=== PATIENT | male | born 1990 | race African-American/Black ===

== ENCOUNTER → 2016-09-02 | Outpatient (REF) | payer OTHER ==
[2016-09-03 10:17] LABS: CONTROL LINE INT CTR LINE PRESENT; HIV SCRN NEGATIVE (NEGATIVE); HIV SCRN1 NEGATIVE (NEGATIVE)
== END ==
LOC: M SFHCPLAZ 15:07
PROVIDERS: ATTEND Family Medicine
DX: Z11.4 Encounter for screening for human immunodeficiency virus [HIV] (principal)

== ENCOUNTER → 2016-09-21 | Outpatient (CLI) | payer OTHER | LOC: M OUTALCOH 10:22 | PROVIDERS: ATTEND Psychiatry & Neurology Psychiatry | DX: Z03.89 Encounter for observation for other suspected diseases and conditions ruled out (principal) ==

== ENCOUNTER 2016-11-27 03:44 | Emergency (ER) | payer OTHER ==
[~2016-11-27] VITALS: Ht 180.3 cm; Wt 95.3 kg
[2016-11-27] MEDS ORDERED: DERMABOND TOPICAL SKIN ADHESIVE TOP ONE (06:00)
[2016-11-27 06:26] VITALS: BP 120/63
== END 2016-11-27 06:27 | disposition home or self-care (01) ==
LOC: M ED 05:13
DX: S01.81XA Laceration without foreign body of other part of head, initial encounter (principal); W10.8XXA Fall (on) (from) other stairs and steps, initial encounter; Y92.89 Other specified places as the place of occurrence of the external cause; Y93.01 Activity, walking, marching and hiking; Y99.8 Other external cause status; F17.200 Nicotine dependence, unspecified, uncomplicated

== ENCOUNTER 2018-05-17 07:41 | Emergency (ER) | payer MEDICAID, SELFPAY, OTHER ==
[2018-05-17] MEDS: ONDANSETRON 4MG/2ML VIAL (J2405) IV ×2 (08:25)
[2018-05-17] MEDS: NS 1,000 ML IV ×4 (08:25→09:30)
[2018-05-17 08:39] LABS: BASO % 0.2 % (0.0-1.0); EOS % 0.2 % (0.0-3.0); HEMOGLOBIN 16.6 g/dl (13.5-17.5); IMMATURE GRANULOCYTE % 0.6 % (0-3.0); LYMPH # 1.5 10^3/uL (1.5-6.5); LYMPH % 11.9 % (24.0-44.0); MEAN CORPUSCULAR HEMOGLOBIN 28.9 pg (27.0-33.0); MEAN CORPUSCULAR HGB CONC 33.9 g/dl (32.0-36.5); MEAN CORPUSCULAR VOLUME 85.2 fl (80.0-96.0); MONO # 0.9 10^3/uL (0.0-0.8); MONO % 7.2 % (0.0-5.0); NEUTROPHILS # 9.9 10^3/uL (1.8-7.7); NEUTROPHILS % 79.9 % (36.0-66.0); PLATELET COUNT, AUTOMATED 252 10^3/uL (150-450); RED BLOOD COUNT 5.75 10^6/uL (4.30-6.10); RED CELL DISTRIBUTION WIDTH 13.5 % (11.5-14.5); WHITE BLOOD COUNT 12.3 10^3/uL (4.0-10.0)
[2018-05-17 09:16] LABS: ALBUMIN 4.9 GM/DL (3.2-5.2); ALBUMIN/GLOBULIN RATIO 1.23 (1.00-1.93); ALKALINE PHOSPHATASE 63 U/L (45-117); ALT/SGPT 32 U/L (12-78); ANION GAP 9 MEQ/L (8-16); AST/SGOT 10 U/L (7-37); BILIRUBIN,DIRECT 0.2 MG/DL (0.0-0.2); BILIRUBIN,TOTAL 0.7 MG/DL (0.2-1.0); BLOOD UREA NITROGEN 23 MG/DL (7-18); CALCIUM LEVEL 10.1 MG/DL (8.5-10.1); CARBON DIOXIDE LEVEL 26 MEQ/L (21-32); CHLORIDE LEVEL 101 MEQ/L (98-107); CREATININE FOR GFR 1.34 MG/DL (0.70-1.30); GLOMERULAR FILTRATION RATE > 60.0 (>60); GLUCOSE, FASTING 103 MG/DL (70-100); POTASSIUM SERUM 3.9 MEQ/L (3.5-5.1); SODIUM LEVEL 136 MEQ/L (136-145); TOTAL PROTEIN 8.9 GM/DL (6.4-8.2)
[2018-05-17 11:05] LABS: AMORPHOUS SEDIMENT SMALL (NEGATIVE); APPEARANCE, URINE HAZY (CLEAR); BACTERIA, URINE AUTO NEGATIVE (NEGATIVE); BILIRUBIN, URINE AUTO NEGATIVE (NEGATIVE); BLOOD, URINE BLOOD NEGATIVE (NEGATIVE); COLOR, URINE YELLOW (YELLOW); GLUCOSE, URINE (UA) AUTO NEGATIVE (NEGATIVE); KETONE, URINE AUTO TRACE mg/dL (NEGATIVE); LEUKOCYTE ESTERASE, URINE AUTO NEGATIVE (NEGATIVE); MUCUS, URINE LARGE (NEGATIVE); NITRITE, URINE AUTO NEGATIVE (NEGATIVE); PROTEIN, URINE AUTO 2+ mg/dL (NEGATIVE); RBC, URINE AUTO 5 /HPF (0-3); SPECIFIC GRAVITY URINE AUTO 1.033 (1.002-1.035); SQUAMOUS EPITHELIAL CELL UR AU 0 /HPF (0-6); UROBILINOGEN, URINE AUTO 0.2 mg/dL (0.0-2.0); WBC, URINE AUTO 3 /HPF (0-3)
== END 2018-05-17 10:35 | disposition home or self-care (01) ==
LOC: M ED 07:41
DX: E86.0 Dehydration (principal); F12.188 Cannabis abuse with other cannabis-induced disorder
CPT/HCPCS: J2405

== ENCOUNTER 2019-07-19 07:23 | Inpatient (IN) | payer MEDICAID, OTHER ==
[~2019-07-19] VITALS: Ht 177.8 cm; Wt 73.3 kg
[~2019-07-19 07:23] MED LIST: ZOFR4TAB14 PO
[2019-07-19] MEDS ORDERED: MORPHINE 4 MG/ML 1ML VIAL/SYRINGE (J2270) As Ordered ONE (07:45)
[2019-07-19] MEDS ORDERED: ONDANSETRON 4MG/2ML VIAL (J2405) As Ordered ONE (07:45)
[2019-07-19] MEDS: MORPHINE 4 MG/ML 1ML VIAL/SYRINGE (J2270) IV PRN ×2 (07:53→08:21)
--- NOTE | 2019-07-19 07:59 | REP ---
Chest x-ray: Two views. History: History of pneumothorax. Shortness of breath. No comparison study. Findings: There is a large right-sided pneumothorax with depression of the right hemidiaphragm, shift of the mediastinum to the left, and some widening of the intercostal spaces consistent with some degree of tension. The left lung is clear. Impression: Findings consistent with tension pneumothorax right side. Findings were telephoned to the referring provider at the time of the study. Electronically Signed by Judah Mora MD 07/19/2019 07:50 A
[2019-07-19] MEDS ORDERED: ONDANSETRON 4MG/2ML VIAL (J2405) IV ONE (08:00)
[2019-07-19] MEDS ORDERED: KETOROLAC 30 MG/ML VIAL (J1885) As Ordered ONE (08:03)
[2019-07-19] MEDS: NS 1,000 ML IV SCH ×4 (08:04→23:00)
[2019-07-19] MEDS ORDERED: KETOROLAC 30 MG/ML VIAL (J1885) IV ONE (08:15)
[2019-07-19] MEDS ORDERED: LIDOCAINE 2% W/EPIN INJ 20ML **PRES FREE INJ ONE (08:15)
[2019-07-19 08:23] LABS: BASO # 0.1 10^3/uL (0.0-0.2); BASO % 0.2 % (0.0-1.0); LYMPH # 1.4 10^3/uL (1.5-5.0); LYMPH % 6.5 % (24.0-44.0); MEAN CORPUSCULAR HEMOGLOBIN 28.5 pg (27.0-33.0); MEAN CORPUSCULAR HGB CONC 33.3 g/dl (32.0-36.5); MEAN CORPUSCULAR VOLUME 85.4 fl (80.0-96.0); MONO # 1.1 10^3/uL (0.0-0.8); MONO % 5.1 % (0.0-5.0); NEUTROPHILS # 18.3 10^3/uL (1.5-8.5); NEUTROPHILS % 87.1 % (36.0-66.0); PLATELET COUNT, AUTOMATED 310 10^3/uL (150-450); RED BLOOD COUNT 6.57 10^6/uL (4.30-6.10)
[2019-07-19 08:27] LABS: HEMATOCRIT 56.1 % (42.0-52.0); HEMOGLOBIN 18.7 g/dl (13.5-17.5)
[2019-07-19] MEDS ORDERED: NS IV ONE (09:00)
[2019-07-19] MEDS ORDERED: KETAMINE HCL IV ONE (09:00)
[2019-07-19 09:02] LABS: ALBUMIN 6.3 GM/DL (3.2-5.2); BILIRUBIN,TOTAL 0.8 MG/DL (0.2-1.0); CALCIUM LEVEL 11.2 MG/DL (8.5-10.1); CREATININE FOR GFR 6.43 MG/DL (0.70-1.30); GLOMERULAR FILTRATION RATE 13.4 (>60); POTASSIUM SERUM 4.4 MEQ/L (3.5-5.1); TOTAL PROTEIN 11.4 GM/DL (6.4-8.2)
[2019-07-19] MEDS ORDERED: MIDAZOLAM INJ 2 MG/2 ML VIAL (J2250) As Ordered ONE (09:10)
[2019-07-19] MEDS ORDERED: MIDAZOLAM INJ 2 MG/2 ML VIAL (J2250) IV STA (09:11)
--- NOTE | 2019-07-19 09:26 | REP ---
Portable chest x-ray: Single view. History: Tension pneumothorax status post chest tube. Findings: A right chest tube has been inserted with its tip near the apex in good position. The right-sided pneumothorax has been evacuated and the right lung reinflated with except for a small zone of linear plate-like atelectasis is present in the right base. Right hemidiaphragm is slightly elevated. Left lung remains clear. Impression: Right chest tube in good position. The right-sided pneumothorax has been evacuated. Electronically Signed by Judah Mora MD 07/19/2019 09:17 A
[2019-07-19] MEDS ORDERED: NS 1,000 ML IV ONE ×2 (09:45)
[2019-07-19 10:06] LABS: MAGNESIUM LEVEL 2.9 MG/DL (1.8-2.4)
[2019-07-19 10:36] LABS: URIC ACID 7.5 MG/DL (3.5-7.2)
[2019-07-19 10:56] LABS: IONIZED CALCIUM 4.6 MG/DL (4.5-5.3)
--- NOTE | 2019-07-19 10:57 | REP ---
RENAL ULTRASOUND: Real-time sonographic evaluation of the kidneys performed. The kidneys are normal in size and echotexture, right kidney measuring 10.2 x 5.5 x 4.1 cm and left kidney 10.5 x 5.2 x 5.6 cm. There is no hydronephrosis bilaterally. Study is somewhat limited due to patient body habitus. The bladder is not well-distended and ureteral jets are not well visualized with Doppler color evaluation. IMPRESSION: No hydronephrosis. Electronically Signed by Popeye Mack MD 07/23/2019 10:14 A
[2019-07-19 11:04] LABS: BASO % 0.2 % (0.0-1.0); HEMATOCRIT 51.2 % (42.0-52.0); HEMOGLOBIN 17.2 g/dl (13.5-17.5); LYMPH # 0.8 10^3/uL (1.5-5.0); LYMPH % 3.5 % (24.0-44.0); MEAN CORPUSCULAR HGB CONC 33.6 g/dl (32.0-36.5); MEAN CORPUSCULAR VOLUME 86.2 fl (80.0-96.0); MONO # 1.8 10^3/uL (0.0-0.8); MONO % 8.1 % (0.0-5.0); NEUTROPHILS # 18.7 10^3/uL (1.5-8.5); NEUTROPHILS % 86.8 % (36.0-66.0); PLATELET COUNT, AUTOMATED 267 10^3/uL (150-450); RED BLOOD COUNT 5.94 10^6/uL (4.30-6.10); WHITE BLOOD COUNT 21.6 10^3/uL (4.0-10.0)
[2019-07-19] MEDS ORDERED: ACETAMINOPHEN TAB 650MG DOSE (2X325MG) PO PRN (11:15)
[2019-07-19] MEDS ORDERED: NALOXONE INJ 0.4 MG/1 ML VIAL (J2310) IV PRN (11:15)
[2019-07-19] MEDS ORDERED: MORPHINE 4 MG/ML 1ML VIAL/SYRINGE (J2270) IV PRN (11:15)
[2019-07-19 11:28] LABS: C REACTIVE PROTEIN QUANTITATIV 0.49 MG/DL (0.00-0.30); CALCIUM LEVEL 9.8 MG/DL (8.5-10.1); CREATININE FOR GFR 5.99 MG/DL (0.70-1.30); GLOMERULAR FILTRATION RATE 14.5 (>60); MAGNESIUM LEVEL 2.5 MG/DL (1.8-2.4); PHOSPHORUS LEVEL 8.8 MG/DL (2.5-4.9); POTASSIUM SERUM 4.6 MEQ/L (3.5-5.1)
[2019-07-19 11:32] LABS: TOTAL PROTEIN 9.4 GM/DL (6.4-8.2)
[2019-07-19] MEDS: PERCOCET 5MG/325MG TAB PO PRN ×2 (11:35→21:49)
[2019-07-19] MEDS ORDERED: SODIUM BICARBONATE 150 MEQ in STERILE WATER LITER BAG 1,000 ML IV SCH (12:00)
--- NOTE | 2019-07-19 12:03 | HPE ---
DATE OF ADMISSION: 07/19/2019 PRIMARY CARE PHYSICIAN: None, previously seen by Dr. Debora Roberts in 2017. CHIEF COMPLAINT: Shortness of breath, chest pain. HISTORY OF PRESENTING ILLNESS: 29-year-old male with history of cyclic hyperemesis syndrome secondary to daily marijuana use who presents to the emergency room with acute onset of pleuritic chest pain on the right side and shortness of breath. For the past three days he felt that he had food poisoning, could not eat but was able to keep liquids down and was drinking up to 24 packs of water at home. He says that when he gets food poisoning he feels better when he goes in a shower. This morning has was in the shower relaxing his body and was in there for about 10 minutes when he noticed a loud pop and sharp pain on the right chest, which was similar to the pain he had last year on the left side when he had a left sided pneumothorax. He was seen in the emergency room but refused a chest tube at that time. He relates that during that time he had been having a two months history of trouble breathing, unable to lay down straight, could not breath, woke up his girlfriend when his heart was fluttering and could not catch his breath. He then went to [place] and was told that he needed a chest tube, that he did not give permission to do. They then wanted to transfer him to [facility], but he refused and ended up getting into his car and driving to [facility] emergency room where he had a chest tube placed emergently. The patient is concerned that this is a similar episode this time, that he has had prior exposure to, and was concerned that his inhalation of chemicals for working at [employer] for 1-1/2 years may have caused these issues. For the past three days he has been nauseated and vomiting, but mostly at nighttime, 3-5 times a night, and was retching violently yesterday with bad muscle spasms. He denied any diarrhea. No sick contacts. No fever. He was developing some hot sweats, however. No pain medications taken for nausea, vomiting or the right sided pleuritic chest pain. When he presented to the emergency room, he was found to have a right sided tension pneumothorax. A chest tube was placed by the emergency room physician, Dr. Rodriguez, and a surgical consult, Dr. Garcia, was done for management of chest tube. The patient's blood pressure in the ER was 224/140 due to significant respiratory distress and pleuritic chest pain. He ws afebrile but had a white count of 21,000, appeared to be hemoconcentrated, with a new finding of a creatinine of 6.43 with baseline of 1.3. Hospitalist was called to admit for tension pneumothorax being managed by general surgery and evaluation of the patient's renal failure, most likely secondary to severe dehydration from recurrent vomiting, most likely related to cyclic hyperemesis secondary to marijuana. PAST MEDICAL HISTORY: Left sided pneumothorax. Cyclic hyperemesis syndrome secondary to marijuana use. PAST SURGICAL HISTORY: Chest tube placement on the left at [facility]. ALLERGIES: No known drug allergies. MEDICATIONS: None. SOCIAL HISTORY: The patient has been using marijuana several times during the day, everyday, "I use it a lot" for several years. No history of tobacco use. Previously worked for [employer] in 2017 for 1-1/2 years, currently going to school. He currently lives at home with his girlfriend and some kids. Healthcare proxy is his girlfriend. FAMILY HISTORY: Mother and father unknown medical history. The patient says "they are drug users." REVIEW OF SYSTEMS: As per HPI. 12 point system otherwise negative. PHYSICAL EXAMINATION: Temperature 96.2, pulse 109, blood pressure 203/103, 99% on room air. General: Patient is awake, alert and oriented to person, place and time. He currently is able to speak in full sentences, and has a right sided chest tube placed. Lungs: Are diminished but clear to auscultation. No wheezing, rales or rhonchi. Heart: S1, S2 sinus tachycardia. Abdomen: Soft, nontender, nondistended. Positive bowel sounds times four quadrants. No rebound or guarding. No hepatosplenomegaly. Extremities: No cyanosis, clubbing or pitting edema. Skin: The patient has a chest tattoo, bilateral upper extremities as well. LABORATORY DATA: White count 21,000, hemoglobin 18, hematocrit 56, platelet count 310, 87% neutrophils. Sodium 129, potassium 4.4, chloride 92, bicarb 20, BUN 47, creatinine 6.43, glucose 178, calcium of 11.2, uric acid 7.5, magnesium 2.9, total bilirubin 0.88, AST 21, ALT 28, alkaline phosphatase 78, total CK 581, total protein 11.4, albumin of 6.3. Albumin globulin ratio 1.24. Procalcitonin pending. JAYLA screen is pending. Hepatitis serology is pending. Urinalysis is pending. Renal ultrasound 07/19/2019 no hydronephrosis. Bladder is not well distended. Ureteral jets are not well visualized with Doppler color evaluation. Chest x-ray 07/19/2019 tension pneumothorax on the right with depression of the right hemidiaphragm, shift of mediastinum to the left with widening of the intercostal space consistent with some degree of tension. Left lung is clear. ASSESSMENT/PLAN: This is a 29-year-old male, -Gambian, with history of left sided pneumothorax requiring chest tube placement managed at [facility] last year, who presents with acute onset of a popping sensation of the right lung with acute shortness of breath today while in the shower with three day history of nausea and vomiting at home, found to have acute renal failure, metabolic acidosis, hyponatremia. The patient will be admitted as an inpatient for two midnights for the following issues: Right sided tension pneumothorax status post chest tube placement in the emergency room by Dr. Rodriguez. Patient denies any prior history of Tobacco abuse. Will chest CT chest to look for emphysematous blebs rule out alpha-1 antitrypsin deficiency if possible blebs are noted. Surgical management per Dr. Nader Garcia, who has been consulted. Keep saturations greater than 90% with supplemental oxygen if needed. The patient is admitted to the telemetry unit. Acute kidney injury. The patient has had a three day history of nausea and vomiting without any diarrhea. Will replenish with IV fluids times 3 liters. Currently renal ultrasound shows no hydronephrosis. Check A1c level. Rule out diabetes. Check urine protein, SPEP, UPEP. Continue with fluid hydration. If no significant improvement, consult nephrology. R/o vasculitis, glomerular disease. check JAYLA,panca, antigbm ab, crp, esr, c3 c4 cryoglobulins, hepatitis serology, hiv, urine eosinophils. consult nephrology. Hypertensive urgency secondary to severe pain and respiratory distress. Improving without intervention. Hyponatremia. The patient states that he was drinking up to 29 bottles of water a day to try to keep up with the nausea and vomiting, however. Will check serum osmolarity and uric acid. Monitor hemoglobin and hematocrit every 6 hours and adjust fluids accordingly. Metabolic acidosis secondary to renal failure. monitor with serial metabolic panel. Leukocytosis. Most likely reactive. Chest x-ray shows no acute infiltrate. Await results of CT chest. He denies any fever, chills, but was having some hot sweats at home. Chest urinalysis. No empiric antibiotics for now unless the patient is febrile. Cyclic vomiting syndrome due to cannabis use which he uses recreationally. cessation counselling has been provided secondary polycythemia may benefit from pulmonary referral as outpt especially in light of bullous changes seen on CT chest. check 2D echo to rule out pulmonary hypertension. Abnormal CT chest/Emphysema will need pulmonary referral, PFTs. due to bullae in lungs. Recreational drug use advised to stop cannabis use which in rare cases can cause bullae in lungs. Proteinuria r/o nephrotic syndrome, DM, vasculitis. monitor urine output. nephrology consulted Hypercalcemia. Awaits UPEP and SPEP. Continue with IV fluid hydration. Compression stockings for deep vein thrombosis (DVT) prophylaxis. Diet. Renal diet. MTDD
[2019-07-19 12:23] VITALS: BP 158/85
--- NOTE | 2019-07-19 12:32 | REP ---
CT chest without contrast: History: Chest tube. Pneumothorax. Comparison is made with today's chest x-ray. Findings: There are small biapical bullae noted superiorly and medially. On the right this includes a bolus which measures 2.4 cm in greatest diameter. A little lower down along the medial aspect of the right upper lobe adjacent to the mediastinum there is a 1.3 cm bolus. On the left there are two or three subcentimeter bullae in the apex. There is no visible pneumothorax in the apex. A tiny sliver of pleural air is seen anteriorly and medially. There is a mild amount of pneumomediastinum. The lung callahan show no evidence of infiltrate. There is no evidence of pleural effusion. Right chest tube remains in position coursing along the lateral right chest in the major fissure to the apex. No bony abnormality. Impression: Right chest tube in place. Right pneumothorax is virtually completely evacuated. There is a small amount of pneumomediastinum. There are bilateral upper lobe pulmonary parenchymal bullae or air cysts. Right larger than left. Electronically Signed by Judah Mora MD 07/19/2019 01:10 P
[2019-07-19 12:41] LABS: HEMOGLOBIN A1c 5.2 %
[2019-07-19] MEDS ORDERED: SODIUM BICARBONATE 325 MG TAB PO SCH (13:00)
[2019-07-19 15:55] VITALS: BP 137/84
[2019-07-19 17:01] LABS: POTASSIUM RANDOM URINE 62.9 MEQ/L; TOTAL PROTEIN,RANDOM URINE 194.5 MG/DL (0.0-12.0); URINE TOTAL PROTEIN 194.5 MG/DL (0-12)
[2019-07-19 19:51] LABS: CALCIUM LEVEL 8.5 MG/DL (8.5-10.1); CREATININE FOR GFR 3.28 MG/DL (0.70-1.30); GLOMERULAR FILTRATION RATE 29.1 (>60); POTASSIUM SERUM 3.9 MEQ/L (3.5-5.1)
[2019-07-19 20:00] VITALS: BP 145/84
[2019-07-19] MEDS: ONDANSETRON 4MG/2ML VIAL (J2405) IV PRN (21:16)
--- NOTE | 2019-07-19 23:03 | REPVR ---
PROCEDURE INFORMATION: Exam: XR Chest, 2 Views Exam date and time: 07/19/2019 10:17 PM Age: 29 years old Clinical history: Other: Right side chest pain. Same side as chest tube; Additional info: Right side chest pain. Same side as chest tube TECHNIQUE: Imaging protocol: XR of the chest Views: 2 views. COMPARISON: CR PORTABLE CHEST X-RAY 07/19/2019 9:06 AM FINDINGS: Tubes, catheters and devices: Right-sided chest tube with its tip in the apical region. Lungs: Emphysematous changes in the right chest wall. Pleural space: Unremarkable. No pleural effusion. No pneumothorax. Heart/Mediastinum: Unremarkable. No cardiomegaly. Bones/joints: Unremarkable. IMPRESSION: Right-sided chest tube with its tip in the apical region. No acute abnormality. Electronically signed by: Michael Lamb On 07/19/2019 23:02:48 PM
[2019-07-20] VITALS (14 sets, daily range): BP systolic 135–184; BP diastolic 74–98
[2019-07-20] MEDS: NS 1,000 ML IV SCH ×6 (04:00→20:00)
[2019-07-20 06:29] LABS: ALBUMIN 3.4 GM/DL (3.2-5.2); ALT/SGPT 17 U/L (12-78); BILIRUBIN,TOTAL 1.1 MG/DL (0.2-1.0); BLOOD UREA NITROGEN 26 MG/DL (7-18); CALCIUM LEVEL 8.4 MG/DL (8.5-10.1); CARBON DIOXIDE LEVEL 28 MEQ/L (21-32); CHLORIDE LEVEL 104 MEQ/L (98-107); CREATININE FOR GFR 1.55 MG/DL (0.70-1.30); GLOMERULAR FILTRATION RATE > 60.0 (>60); GLUCOSE, FASTING 102 MG/DL (70-100); POTASSIUM SERUM 4.1 MEQ/L (3.5-5.1); SODIUM LEVEL 137 MEQ/L (136-145); TOTAL PROTEIN 6.6 GM/DL (6.4-8.2)
--- NOTE | 2019-07-20 08:37 | REP ---
Portable chest x-ray: Single view. History: Pneumothorax chest tube treatment. Comparison study July 19, 2019 a 10:07 p.m. Findings: The right chest tube is seen in place in the right apex. The right-sided pneumothorax has recurred and a small amount of air is seen throughout the right pleural space, approximately 15% right pneumothorax. There is some extrathoracic gas. The left lung is clear. No infiltrate is seen. Impression: The right-sided pneumothorax has recurred, approximately 15% despite the right chest tube. Electronically Signed by Judah Mora MD 07/20/2019 08:29 A
[2019-07-20 10:19] LABS: CRYOGLOBULINS NEGATIVE (NEGATIVE)
--- NOTE | 2019-07-20 10:39 | REP ---
PORTABLE CHEST X-RAY: SINGLE VIEW AT 10:09 A.M. HISTORY: Pneumothorax with chest tube. COMPARISON STUDY: 07/20/2019 at 7:17 a.m. FINDINGS: The recurrent right-sided pneumothorax has been largely evacuated. There is a tiny sliver of residual right apical pleural air. The lung callahan remain otherwise clear. There is some mild extrathoracic soft tissue emphysema along the right lateral chest wall again noted. IMPRESSION: Improved, nearly resolved right-sided pneumothorax on the current film. Right chest tube remains in place. Electronically Signed by Judah Mora MD 07/20/2019 01:02 P
[2019-07-20 10:51] LABS: HEPATITIS A ANTIBODY IGM NEGATIVE (NEGATIVE); HEPATITIS B CORE ANTIBODY IGM NEGATIVE (NEGATIVE); HEPATITIS B SURFACE ANTIGEN NEGATIVE (NEGATIVE); HEPATITIS C VIRUS ABY INDEX 0.1 INDEX (<0.8)
[2019-07-20 10:51] LABS: HIV 1&2 SCREEN CENTAUR NEGATIVE (NEGATIVE)
[2019-07-20] MEDS: ONDANSETRON 4MG/2ML VIAL (J2405) IV PRN (14:14)
[2019-07-20] MEDS ORDERED: PERCOCET 5MG/325MG TAB PO ONE (17:30)
[2019-07-20] MEDS ORDERED: amLODIPine 5 MG TAB PO ONE (17:30)
[2019-07-20] MEDS ORDERED: LIDOCAINE 1% MDV 20ML VIAL As Ordered ONE (18:54)
--- NOTE | 2019-07-20 19:13 | REP ---
Portable chest x-ray: Single view. History: Chest tube dislodged. Pneumothorax. Comparison study July 20, 2019. Findings: The chest tube in place on the earlier radiograph is no longer apparent. The right sided pneumothorax has recurred and is large. There is no mediastinal shift but there is nearly complete collapse of the right lung. There is extrathoracic soft tissue gas again seen. Impression: Recurrence of the large right sided pneumothorax post chest tube dislodgement. Electronically Signed by Judah Mora MD 07/20/2019 07:05 P
--- NOTE | 2019-07-20 20:08 | REP ---
Portable chest x-ray: Single view. History: Pneumothorax, status post chest tube placement. Findings: A right thoracostomy catheter is seen in place overlying the upper chest. The right-sided pneumothorax is improved with a small residual pneumothorax. The right lung is largely reinflated. Impression: Right-sided pneumothorax is improved post pleural drainage tube placement. Electronically Signed by Judah Mora MD 07/20/2019 07:59 P
--- NOTE | 2019-07-20 21:14 | IPN ---
DATE: 07/20/2019 HISTORY: The patient was admitted yesterday through the emergency department. He presented with a tension pneumothorax on the right with complete collapse of the lung. This was a spontaneous pneumothorax. He had a chest tube placed by Dr. Rodriguez in the emergency department and was admitted by medicine because of concomitant diagnosis of acute renal failure. He has been hydrated vigorously and his renal function is markedly improved. His chest tube is being managed by me. Vital signs: Show that he has been afebrile since admission. His pulse is in the 50s to 70s. His blood pressure is good and his room air saturations are normal. Intake and output shows that yesterday he had 5600 in with 1300 of urine output and 10 mL in the chest tube. PHYSICAL EXAMINATION: The patient is alert and oriented. He is resting in bed kneeling on the bed, leaning forward across a mound of pillows and blankets and he indicates this is his most comfortable position. Examination of the chest tube dressing shows this to be intact. The chest tube itself indicates that he is having an intermittent air leak with bubbles not with every breath but every several breaths. He does have some increased air leak momentarily with a cough. Laboratory studies today show a chemistry profile with a sodium of 137, potassium 4.1, chloride 104, CO2 of 28, BUN of 26, creatinine is down to 1.55 from 6.4 at time of admission. His glucose is 102 and liver function tests are not significantly abnormal. CHEST X-RAY: He had a chest x-ray last evening for apparently a complaint of some right-sided chest pain, which would be expected. He had a chest x-ray that I had ordered this morning as a portable and this showed a small apical pneumothorax extending about assisted down the chest. The chest tube itself appears to perhaps be slightly pulled back from the initial insertion x-ray, but otherwise is in good position. IMPRESSION: The patient appears to be tolerating his chest tube about as expected. There has been no significant fluid output. He does have some bubbling in his chest tube and on his regional chest x-ray today showed a recurrent small pneumothorax of the superior aspect of the chest. The patient's Pleur-Evac appears to be functioning well currently. It is unclear to me if his current position will help drainage of air or perhaps hinder it, but I do not think it is necessary to require him to reposition himself. We will monitor his chest tube and his air leak. I would note that he had a CT scan yesterday that did show small blebs at the apices of both lungs. At the time of his chest CT, the lung was completely expanded with the chest tube in good position. PLAN: We will monitor his chest tube air leak. I suspect that the patient's risk for recurrence is pretty high given his previous pneumothorax on the left and now his new pneumothorax on the right. I think he may well be a good candidate for a blebectomy and pleurodesis. I did advise him that I think it is likely that this would be of benefit to him. For now, we will continue to monitor his leak and I will let him think about the possibility of surgery.
--- NOTE | 2019-07-20 22:25 | RO ---
DATE OF PROCEDURE: 07/20/2019 PREOPERATIVE DIAGNOSIS: Pneumothorax (previous chest tube fell out). POSTOPERATIVE DIAGNOSIS: Pneumothorax (previous chest tube feel out). PROCEDURE: Anterior chest tube placement. SURGEON: Reese Lopez MD REFRIGERATION SPECIALIST: ANESTHESIA: Local lidocaine. BRIEF PROCEDURE SUMMARY: The patient was prepped and draped in the usual sterile fashion in his bed. Local lidocaine was infiltrated and an anterior approach to placing a percutaneous drainage catheter. The local was injected, the percutaneous catheter was placed without difficulty. Good air return was obtained, and this was placed on suction catheter. The catheter was sutured in place and a dry sterile dressing applied. Postoperative chest x-ray confirmed that the lung was starting to insufflate and was not completely there at the time of the postprocedure chest x-ray. Plan is for a followup chest x-ray in the morning for reevaluation of the air leak/chest tube.
[2019-07-21] VITALS (9 sets, daily range): BP systolic 68–172; BP diastolic 66–100
[2019-07-21] MEDS: NS 1,000 ML IV SCH ×3 (00:11→08:11)
--- NOTE | 2019-07-21 02:30 | REPVR ---
PROCEDURE INFORMATION: Exam: XR Chest, 1 View Exam date and time: 07/21/2019 2:15 AM Age: 29 years old Clinical history: Other: New air leak TECHNIQUE: Imaging protocol: XR of the chest Views: 1 view. COMPARISON: CR PORTABLE CHEST X-RAY 07/20/2019 7:42 PM FINDINGS: Lungs: Unremarkable. No consolidation. Pleural space: Mild right pneumothorax which is slightly decreased overall since the prior study. Heart/Mediastinum: Unremarkable. No cardiomegaly. Bones/joints: Right thoracic vent in position. Soft tissues: Subcutaneous emphysema about the right chest which is similar. IMPRESSION: 1. Mild right pneumothorax which is slightly decreased since 07/20/2019. 2. Otherwise stable chest. Electronically signed by: Chay Vallejo On 07/21/2019 02:30:13 AM
[2019-07-21 06:28] LABS: BLOOD UREA NITROGEN 8 MG/DL (7-18); CALCIUM LEVEL 8.3 MG/DL (8.5-10.1); CARBON DIOXIDE LEVEL 27 MEQ/L (21-32); CHLORIDE LEVEL 106 MEQ/L (98-107); CREATININE FOR GFR 0.92 MG/DL (0.70-1.30); GLOMERULAR FILTRATION RATE > 60.0 (>60); GLUCOSE, FASTING 88 MG/DL (70-100); POTASSIUM SERUM 3.9 MEQ/L (3.5-5.1); SODIUM LEVEL 142 MEQ/L (136-145)
--- NOTE | 2019-07-21 07:57 | REP ---
RENAL NUCLEAR SCAN WITH FLOW AND FUNCTION: Following the intravenous administration of 8.4 mCi of technetium 99m MAG3, immediate flow images are obtained of the kidneys in the posterior projection showing greater degree of perfusion of right kidney compared to the left. Delayed renal function images are performed every minute for a period of 30 minutes in the posterior projection. The kidneys are symmetrical in size with cortical uptake and washout. There is bilateral excretion. There is initially mild prominence of the right ureter, but this resolves towards the end of the exam. There is no persistent hydroureteronephrosis or evidence of urinary tract obstruction bilaterally. Split function is 41.9% on the left and 58.1% on the right. Time to peak is normal bilaterally under 1 minute. T-1/2 is normal bilaterally, approximately 4.7 minutes on the left and 4.8 minutes on the right. Renal function curves are normal in their downward slopes. There is moderate activity in the urinary bladder which persists after voiding. IMPRESSION: Relatively normal renal function bilaterally. Greater degree of split function on the right compared to the left. Moderate postvoid residual in the urinary bladder after voiding. Electronically Signed by Popeye Mack MD 07/23/2019 04:17 P
--- NOTE | 2019-07-21 08:45 | REP ---
Chest x-ray: Two views. 07:47 a.m. film. History: Pneumothorax. Chest tube. Comparison study: 07/21/2019 02:07 a.m. film. Findings: The right pleural drainage catheter is again noted in the right apex. There has been a further decrease in the size of the right-sided pneumothorax since the 02:07 a.m. film. There is a tiny sliver of residual pleural air at the apex 3-4 mm in thickness. No infiltrate is seen. Left lung is clear. EKG electrodes are seen. Impression: Improved now tiny right-sided pneumothorax with pleural drainage catheter at the upper lung zone on the right. Electronically Signed by Juadh Mora MD 07/21/2019 08:36 A
--- NOTE | 2019-07-21 09:21 | IPN ---
DATE OF SERVICE: 07/20/2019 The patient complains of increasing shortness of breath. Repeat chest x-ray shows slight recurrence of the pneumothorax at 15%. Repeat chest x-ray shows improvement, nearly resolved right-sided pneumothorax, right chest tube in place. The patient's creatinine is significantly improved from 6.43 to 1.55. Urine culture is negative. Group B Streptococcus screen is negative. Respiratory panel negative. Repeat chest x-ray shows no infiltrate. Procalcitonin is 0.1. No empiric antibiotics have been given. The patient denies any shortness of breath. He still complains of pleuritic chest pain and pain rated at 4/10 when he moves around with the chest tube. Temperature 98.5, pulse 51, respiratory rate 19, blood pressure 158/98, 99% on room air. Generally, the patient is awake, alert, oriented times three. No respiratory distress. No use of respiratory accessory muscles. No abdominal retractions. No nasal flaring. No conversational dyspnea. No jugular venous distention (JVD). No thyromegaly. Moist mucous membranes. Lungs are clear to auscultation bilaterally. Right-sided chest tube noted. Heart: S1, S2, sinus tachycardia. Abdomen: Soft, nontender, nondistended. Extremities: No cyanosis, clubbing, or any pitting edema. LABORATORY DATA: Reviewed. Notable for a creatinine of 1.55, admission creatinine of 6.43. MICROBIOLOGY: Urine and respiratory panel and group A Streptococcus are all negative. Renal ultrasound: No hydronephrosis. Chest CT: Multiple small bullae. Repeat chest x-ray: Nearly resolved pneumothorax. ASSESSMENT AND PLAN: This is a 29-year-old male with history of marijuana-induced hyperemesis syndrome, history of spontaneous pneumothoraces initially on the left and currently on the right due to marijuana use and pulmonary bullae formation, presented to the emergency room with 3-day history of vomiting and retching at home and admitted for right tension pneumothorax. The patient had significant leukocytosis of 21,000 with negative urine culture, remained afebrile. Respiratory panel was negative. Chest x-ray had no infiltrate. Procalcitonin is 0.1. ACTIVE ISSUES/IMPRESSION: 1. Right tension pneumothorax, status post chest tube placement by Dr. Rodriguez in the emergency room (ER). Managed by general surgeon, Nader Garcia. Defer to surgery regarding discontinuation of the chest tube. 2. Acute kidney injury. The patient had received a total of 5.57 liters of intravenous (IV) fluids with output of 1.3 liters with resolution of acute kidney injury. 3. Metabolic acidosis has resolved with sodium bicarbonate drip. 4. Marijuana use. Most likely causing pulmonary bullae, per oil rig roughneck, Dr. Barcenas. Alpha-1 antitrypsin has been checked. Still pending. No need for outpatient pulmonary followup and encouraged the patient to discontinue recreational marijuana use. 5. Recreational marijuana abuse causing blebs and recurrent pneumothoraces. The patient has been advised and counseled against recreational drug use with marijuana. 5. Deep venous thrombosis (DVT) prophylaxis. Encourage ambulation and compression stockings. MTDD
[2019-07-21 10:22] LABS: BASO % 0.2 % (0.0-1.0); EOS % 0.1 % (0.0-3.0); HEMATOCRIT 37.9 % (42.0-52.0); LYMPH # 1.4 10^3/uL (1.5-5.0); LYMPH % 14.1 % (24.0-44.0); MEAN CORPUSCULAR HEMOGLOBIN 28.9 pg (27.0-33.0); MEAN CORPUSCULAR HGB CONC 32.5 g/dl (32.0-36.5); MEAN CORPUSCULAR VOLUME 89.2 fl (80.0-96.0); MONO # 1.2 10^3/uL (0.0-0.8); MONO % 11.6 % (0.0-5.0); NEUTROPHILS # 7.4 10^3/uL (1.5-8.5); NEUTROPHILS % 73.5 % (36.0-66.0); PLATELET COUNT, AUTOMATED 176 10^3/uL (150-450); RED BLOOD COUNT 4.25 10^6/uL (4.30-6.10); WHITE BLOOD COUNT 10.1 10^3/uL (4.0-10.0)
[2019-07-21 10:24] LABS: C REACTIVE PROTEIN QUANTITATIV 0.34 MG/DL (0.00-0.30)
[2019-07-21 10:35] LABS: HEMOGLOBIN 12.3 g/dl (13.5-17.5)
[2019-07-21 10:51] LABS: ERYTHROCYTE SEDIMENTATION RATE 4 mm/hr (0-15)
--- NOTE | 2019-07-21 11:58 | CR ---
DATE OF CONSULTATION: 07/19/2019 REASON FOR CONSULTATION: Right tension pneumothorax now treated with tube thoracostomy. HISTORY OF THE PRESENT ILLNESS: The patient is a pleasant 29-year-old man who presented to the emergency department complaining of pain in his right upper chest with some shortness of breath. He had been having some problems with nausea and vomiting over the last 3-4 days. He has been unable to keep down any food or fluids. In the morning of 07/19/2019 he noted the sudden onset of some sharper pain in his right upper chest. He has a history of a left spontaneous pneumothorax approximately a year and half ago, which was treated with a tube thoracostomy apparently in [place]. He recognized that the pain symptoms in the upper chest on the right as being similar to those on the left and presented to the emergency department. In the emergency department, he had a chest x-ray that showed a complete right-sided pneumothorax. I was contacted by the emergency department physician, but because I was tied up in the operating room Dr. Rodriguez proceeded to place a right tube thoracostomy. His laboratory studies subsequently revealed severe acute renal failure likely related to dehydration. He also was found to have significant hemoconcentration with a hematocrit of 56%. The patient has now been admitted by the hospitalist service for management of the medical issues and I will follow his tube thoracostomy and air leak from his spontaneous pneumothorax. ALLERGIES: The patient has NO KNOWN DRUG ALLERGIES. MEDICATIONS: Are none. PAST SURGICAL HISTORY: He had a left-sided tube thoracostomy performed about a year and half ago. MEDICAL HISTORY: Negative other than his prior spontaneous pneumothorax on the left. SOCIAL HISTORY: The patient is a frequent user of smoked marijuana. He denies any tobacco use. 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 FAMILY HISTORY: He does not really know his family history well. REVIEW OF SYSTEMS: Otherwise negative except for those items noted in history of present illness. PHYSICAL EXAMINATION: The patient is a thin, pleasant man, lying quietly on the stretcher in the emergency department. He has a chest tube in place in the right chest. He has several tattoos noted. Heart exam shows a regular rhythm in the 80s-90s. He has bilateral breath sounds with some chest tube sounds on the right. The abdomen is thin and flat. Extremities are without edema. LABORATORY STUDIES: Show a white count of 21,000, hemoglobin 19, hematocrit 56 and a platelet count of 310,000. Chemistry shows a sodium 129, potassium 4.4, chloride 92, BUN of 47, creatinine 6.4 and a glucose of 178. Liver function tests are normal. CK is 581. Total protein is 11.4 with an albumin of 6.3. Initial chest x-ray showed a complete pneumothorax on the right with I believe some degree of tension given a slight shift of the mediastinum to the left. The post chest tube placement image shows good placement of the chest tube into the upper aspect of the right chest with what appears to be complete evacuation of the pneumothorax and re-expansion of the lung. Evaluation of his Pleur-Evac shows that he does have a persistent intermittent air leak. Approximately every two or three breaths he has several bubbles that are released. He is on 20 cm of suction currently. IMPRESSION: 1. Spontaneous pneumothorax on the right with complete collapse of the long and I think some early tension pneumothorax features on x-ray. 2. Acute renal failure likely secondary to dehydration. PLAN: The patient's chest tube will be continued to suction. He has a persistent small air leak currently. He has had a previous spontaneous pneumothorax on the left about a year and a half ago. I note that a CT scan was ordered by the hospitalist for evaluation of the chest and I will need to review this. I suspect that the patient's pneumothoraces are related to small pleural blebs. He is smoking on marijuana though not tobacco, but this increases his risk of problems. I think his risk for recurrence is likely high on either side. We will watch his air leak for now with the tube on suction. If his air leak resolves rapidly, then we can remove the tube and discuss whether surgery would be appropriate at a later date. It may be prudent to proceed to thoracoscopy with bleb resection and even pleurodesis on this occasion, and certainly, this is the case if his air leak persists. I will continue to monitor the patient's chest tube and discuss with him the options for further treatment as time goes on. I will leave the management of his renal failure to the hospitalist team.
--- NOTE | 2019-07-21 12:25 | IPN ---
DATE OF SERVICE: 07/21/2019 The patient's chest tube was dislodged yesterday. Nurse walked in and found the chest tube on his lap. The patient complains of shortness of breath. Chest x-ray shows recurrent pneumothorax. Dr. Lopez was consulted and helped manage currently with pleural drainage catheter in the upper right lung zone with improvement on repeat chest film. The patient still complains of some pleuritic chest pain. His creatinine is back to normal, status post 5.2 liters in yesterday and 1.4 liters out. The patient denies any urinary retention. Complains of not feeing well but did not want to have any pain medications. Temperature 99, pulse 52, respiratory rate 20, blood pressure 137/73, 98% on room air. Generally, the patient has a catheter in right anterior chest. Lungs are clear to auscultation. No wheezing or rales. Heart: S1, S2, sinus bradycardia. Abdomen: Soft, nontender. Extremities: Have no pitting edema. LABORATORY DATA: Pending. Metabolic panel: Sodium 142, potassium 3.9, chloride 106, bicarbonate 27, BUN 8, creatinine 0.92, glucose of 88. ASSESSMENT AND PLAN: A 29-year-old with history of marijuana-induced cyclic vomiting syndrome, spontaneous pneumothoraces initially on the left last year and right currently with pulmonary bullae formation, presented with 3-day history of vomiting and retching at home, admitted for right tension pneumothorax. Status post chest tube by emergency room physician, Dr. Rodriguez, and managed by Dr. Garcia. The patient's chest tube fell out yesterday on 07/20/2019. PleurX pleural catheter placed in the right anterior chest by Dr. Lopez with improvement in the chest x-ray. IMPRESSION: 1. Right tension pneumothorax, status post chest tube by Dr. Rodriguez on admission. Dislodged yesterday, 07/20/2019, with a pleural catheter currently inserted in right anterior chest on 07/20/2019 with improvement in pneumothorax. Managed by general surgeon, Dr. Nader Garcia, yesterday and currently Dr. Lopez. 2. Acute kidney injury. Resolved status post 5 liters of fluids yesterday with output of over a liter. The patient's creatinine is back to normal. Appreciate nephrology's management. 3. Metabolic acidosis. Resolved. 4. Marijuana use. Most likely causing pulmonary bullae, per computer animator, Dr. Barcenas. Alpha-1 antitrypsin level is still pending. No need for outpatient followup. Encouraged the patient to discontinue recreational marijuana use. DISPOSITION: Defer to surgery regarding clearance for the pneumothorax. As long as the catheter has been removed, the patient may be discharged home. MARTHAD
[2019-07-21] MEDS ORDERED: amLODIPine 10 MG TAB PO ONE (17:00)
[2019-07-21 19:24] LABS: BLOOD UREA NITROGEN 9 MG/DL (7-18); CALCIUM LEVEL 8.8 MG/DL (8.5-10.1); CARBON DIOXIDE LEVEL 28 MEQ/L (21-32); CHLORIDE LEVEL 105 MEQ/L (98-107); GLOMERULAR FILTRATION RATE > 60.0 (>60); GLUCOSE, FASTING 78 MG/DL (70-100); SODIUM LEVEL 140 MEQ/L (136-145)
[2019-07-22] VITALS (7 sets, daily range): BP systolic 139–160; BP diastolic 72–92
[2019-07-22 05:54] LABS: HEMATOCRIT 42.8 % (42.0-52.0); MEAN CORPUSCULAR HEMOGLOBIN 29.2 pg (27.0-33.0); MEAN CORPUSCULAR HGB CONC 33.9 g/dl (32.0-36.5); MEAN CORPUSCULAR VOLUME 86.1 fl (80.0-96.0); PLATELET COUNT, AUTOMATED 222 10^3/uL (150-450); RED BLOOD COUNT 4.97 10^6/uL (4.30-6.10); WHITE BLOOD COUNT 9.6 10^3/uL (4.0-10.0)
[2019-07-22 05:59] LABS: HEMOGLOBIN 14.5 g/dl (13.5-17.5)
[2019-07-22 06:16] LABS: BLOOD UREA NITROGEN 8 MG/DL (7-18); CALCIUM LEVEL 8.9 MG/DL (8.5-10.1); CARBON DIOXIDE LEVEL 31 MEQ/L (21-32); CHLORIDE LEVEL 104 MEQ/L (98-107); CREATININE FOR GFR 1.08 MG/DL (0.70-1.30); GLOMERULAR FILTRATION RATE > 60.0 (>60); GLUCOSE, FASTING 87 MG/DL (70-100); MAGNESIUM LEVEL 2.4 MG/DL (1.8-2.4); POTASSIUM SERUM 3.7 MEQ/L (3.5-5.1); SODIUM LEVEL 140 MEQ/L (136-145)
--- NOTE | 2019-07-22 08:28 | REP ---
Chest x-ray: Two views. History: Pneumothorax. Chest tube. Comparison chest x-ray: July 21, 2019. Findings: There is a small right-sided pneumothorax, slightly increased from yesterday's radiograph. The pleural drainage catheter at the right apex has been dislodged and projects beyond the lateral rib edge in the right axillary soft tissues. Pleural angles are sharp. No infiltrate is seen. Impression: Small right apical pneumothorax has increased slightly. The right pleural drainage catheter is dislodged and is no longer terminating in the pleural space. Electronically Signed by Judah Mora MD 07/22/2019 08:20 A
[2019-07-22] MEDS: ONDANSETRON 4MG/2ML VIAL (J2405) IV PRN (09:41)
[2019-07-22] MEDS ORDERED: diphenhydrAMINE 50 MG CAP PO PRN (11:45)
[2019-07-22] MEDS ORDERED: diphenhydrAMINE 50 MG CAP PO ONE (12:00)
[2019-07-22] MEDS ORDERED: amLODIPine 10 MG TAB PO ONE (17:00)
[2019-07-23] VITALS: BP 146/81
[2019-07-23 04:00] VITALS: BP 151/68
[2019-07-23 05:30] LABS: HEMOGLOBIN 15.5 g/dl (13.5-17.5); MEAN CORPUSCULAR HEMOGLOBIN 29.5 pg (27.0-33.0); MEAN CORPUSCULAR HGB CONC 34.4 g/dl (32.0-36.5); MEAN CORPUSCULAR VOLUME 85.6 fl (80.0-96.0); PLATELET COUNT, AUTOMATED 249 10^3/uL (150-450); RED BLOOD COUNT 5.26 10^6/uL (4.30-6.10); WHITE BLOOD COUNT 10.3 10^3/uL (4.0-10.0)
[2019-07-23 05:53] LABS: BLOOD UREA NITROGEN 14 MG/DL (7-18); CALCIUM LEVEL 9.2 MG/DL (8.5-10.1); CARBON DIOXIDE LEVEL 30 MEQ/L (21-32); CHLORIDE LEVEL 101 MEQ/L (98-107); CREATININE FOR GFR 1.12 MG/DL (0.70-1.30); GLOMERULAR FILTRATION RATE > 60.0 (>60); GLUCOSE, FASTING 91 MG/DL (70-100); MAGNESIUM LEVEL 2.4 MG/DL (1.8-2.4); POTASSIUM SERUM 3.2 MEQ/L (3.5-5.1); SODIUM LEVEL 139 MEQ/L (136-145)
--- NOTE | 2019-07-23 06:15 | REP ---
CHEST X-RAY: Two views. 03:24 p.m. film. HISTORY: Pneumothorax. Comparison study is from 08:15 a.m. on this same date. FINDINGS: A small right sided pneumothorax is again noted unchanged from this morning's film. The right chest tube is again noted to project into the right axillary soft tissues. It does not terminate in the pleural space. The lung callahan remain clear. IMPRESSION: No change from the earlier film on this date. The right pleural drainage catheter is dislodged and does not terminate in the pleural space. Small right-sided pneumothorax is unchanged. Electronically Signed by Judah Mora MD 07/23/2019 08:45 A
[2019-07-23] MEDS ORDERED: GNP650TA8 PO (07:34)
[2019-07-23 08:00] VITALS: BP 168/78
--- NOTE | 2019-07-23 08:03 | REP ---
Chest x-ray: Two views. History: Chest tube, pneumothorax. . Comparison study: July 22, 2019 . Findings: EKG monitoring electrodes overlie the chest. A right pleural drainage catheters been removed. There is a tiny sliver of residual apical pleural air on the right. This has decreased from yesterday's radiograph. There is also a tiny amount of residual extrathoracic soft tissue gas in the right chest wall soft tissues. The lungs remain otherwise clear. Impression: Right pleural drainage catheter removed. A tiny, decreased, residual right-sided pneumothorax. Electronically Signed by Judah Mora MD 07/23/2019 07:55 A
[2019-07-23] MEDS ORDERED: POTASSIUM CHLORIDE 10 MEQ SR TABLET PO ONE (11:00)
[2019-07-23 12:00] VITALS: BP 148/78
[2019-07-23] MEDS ORDERED: ZOFR8TAB24 PO (16:08)
--- NOTE | 2019-07-23 17:50 | IPN ---
DATE: 07/22/2019 The patient still continues to complain of insomnia, unable to sleep. He is worried about the wound on the right chest tube site. The patient is requesting some Benadryl. Despite having pain, the patient is reluctant to take any pain medications. He says that he is okay. He currently still has slight pleural chest pain but tolerable and is ambulating well. No other issues per nursing. VITAL SIGNS: Temperature 98.1, pulse 53, respiratory rate 20, blood pressure 145/87, 97% on room air. GENERAL: The patient is awake, alert and oriented times three, answering questions appropriately. Right chest tube site appears clear. No signs of cellulitis. No purulence. Pleural catheter drainage noted on the right anterior chest. No jugular venous distention (JVD). No thyromegaly. LUNGS: Clear to auscultation. No wheezing or rales. HEART: S1, S2, sinus bradycardia. ABDOMEN: Soft, nontender, nondistended. EXTREMITIES: No clubbing, cyanosis, or pitting edema. LABORATORY DATA: White count 9.6, hemoglobin 14, hematocrit 42, platelet count 222. Sodium 140, potassium 3.7, chloride 104, bicarbonate 31, BUN 8, creatinine 1, glucose of 87. Blood culture negative. Urine culture negative. Respiratory panel negative. Group A Streptococcus negative. ASSESSMENT AND PLAN: This is a 29-year-old male with a history of marijuana-induced cyclic vomiting syndrome, spontaneous pneumothoraces initially on the left last year and right currently with pulmonary bullae, presented with a three-day history of vomiting and retching at home, admitted for right tension pneumothorax, status post chest tube placement by emergency room (ER) physician, Dr. Rodriguez, managed by Dr. Garcia and Dr. Lopez currently over the weekend. The patient's chest tube fell out on 07/20/2019. PleurX pleural catheter placed in the right anterior chest by Dr. Lopez with improvement in the residual 15% pneumothorax that recurred. CURRENT ISSUES: 1. Insomnia. Requested Benadryl. Benadryl 100 at bedtime as needed for insomnia provided. 2. Right tension pneumothorax, status post chest tube placement which was dislodged on 07/20/2019 and then pleural catheter drainage placed on 07/20/2019, doing well. Management per general surgery. 3. Acute kidney injury with an admission creatinine of 6, has resolved with IV fluid hydration. 4. Metabolic acidosis, resolved. 5. Marijuana use, most likely causing pulmonary bullae. Per campaign specialist, Dr. Barcenas. Check alpha-1 antitrypsin. No need to followup as outpatient if negative. The patient has been encouraged to discontinue marijuana use as recurrent pneumothoraces may occur in the future. DISPOSITION: Discharge home once the pleural catheter has been discontinued. MTDD
[2019-07-24 00:06] LABS: ALPHA 1 ANTITRYPSIN 167 mg/dL (95-164); ANCA-ATYPICAL <1:20 titer (Neg:<1:20); ANTI DOUBLE STRAND-DNA AB <1 IU/mL (0-9); ANTI-GLOMERULAR BASEMENT MEMB 4 units (0-20); ANTINUCLEAR ANTIBODIES DIRECT Positive (Negative); CYTOPLASMIC NEUTROP AB ANCA-C <1:20 titer (Neg:<1:20); PERINUCLEAR AB ANCA-P <1:20 titer (Neg:<1:20); RNP ANTIBODIES 1.1 AI (0.0-0.9); SJOGREN'S ANTI SS-A <0.2 AI (0.0-0.9); SJOGREN'S ANTI SS-B <0.2 AI (0.0-0.9); SMITH ANTIBODIES 0.2 AI (0.0-0.9)
[2019-07-24 11:32] LABS: ALBUMIN 5.78 GM/DL (3.29-5.55); ALBUMIN % 61.5 % (55.8-66.1); ALPHA-1-GLOBULIN % 4.2 % (2.9-4.9); ALPHA-1-GLOBULINS 0.39 GM/DL (0.17-0.41); ALPHA-2-GLOBULINS 1.01 GM/DL (0.42-0.99); ALPHA-2-GLOBULINS % 10.7 % (7.1-11.8); BETA-1-GLOBULINS 0.46 GM/DL (0.28-0.60); BETA-1-GLOBULINS % 4.9 % (4.7-7.2); BETA-2-GLOBULINS 0.48 GM/DL (0.19-0.55); BETA-2-GLOBULINS % 5.1 % (3.2-6.5); GAMMA GLOBULIN % 13.6 % (11.1-18.8); GAMMA GLOBULINS 1.28 GM/DL (0.65-1.58)
--- NOTE | 2019-07-24 13:48 | DSES ---
DATE OF ADMISSION: 07/19/2019 DATE OF DISCHARGE:07/23/2019 SALES SERVICE SUPERVISOR: Dr. Nader Garcia. PRIMARY DISCHARGE DIAGNOSES: 1. Right spontaneous pneumothorax. 2. Marijuana induced cyclic vomiting syndrome. 3. 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 4. Hypertension secondary to pain. 5. Leukocytosis most likely reactive. 6. Hypokalemia. 7. Acute kidney injury due to vomiting. 8. Hyponatremia. DISCHARGE MEDICATIONS: Tylenol 650 every 4 hours as needed for pain. DISCHARGE INSTRUCTIONS: Followup with primary care physician within 7 days of discharge. Followup with Dr. Garcia if needed and as recommended by surgery. HOSPITAL COURSE: This is a 29-year-old male with history of marijuana induced cyclic vomiting syndrome presented to the emergency room with acute onset of pleuritic right-sided chest pain and a pop. Patient has been having intractable nausea and dry heaving for the past week. This is felt to be secondary to food poisoning and unable to keep food down but had been drinking about 24 packs of water of water. Patient felt that he would relax better if he was in the shower. While in the shower, he felt a loud pop and sharp pain in the right chest and difficulty breathing. Patient recognized similar symptoms when he had a pneumothorax on the left and emergently presented to the emergency room where a right-sided chest tube was placed by the emergency room physician, Dr. Rodriguez. This was subsequently managed by Dr. Garcia. There was an incident with a finding of acute kidney injury a creatinine of 6 on admission and metabolic acidosis as well as pseudohyponatremia from when the patient had drank 24 bottles of liquids to keep fluids down due to 3 days of retching and vomiting at home. Patient was given 5.5 liters of IV fluid on the 5.2 liters of fluids on the with resolution of his renal failure to 0.92 on 07/21/2019. Chest tube was dislodged and a new right pleural catheter was placed by Dr. Lopez over the weekend. Repeat chest x-ray shows resolution of the pneumothorax. Review of his CT chest with Dr. Cho, pulmonary tip printer, most likely consistent with marijuana use, however, alpha I antitrypsin was sent, the result of which is still pending. Patient remains stable. He has episodes of insomnia and high blood pressure, which was treated with Norvasc 10 mg with improvement. PHYSICAL EXAMINATION ON DISCHARGE: Temperature 98.4, pulse 92, respiratory rate 18, blood pressure 168/78, 98% on room air. Generally, awake, alert, oriented to person, place and time. Multiple tattoos anterior chest and lower abdomen. Patient has a chest tube site that is 2 cm on the right medial aspect under the axilla. Lungs are clear to auscultation. No wheezing, rales or rhonchi. Heart: S1, S2 sinus rhythm. Abdomen is soft, nontender, nondistended. Positive bowel sounds. Extremities, no cyanosis, clubbing or pitting edema. LABORATORY DATA ON DISCHARGE: Sodium 139, potassium 2.2, chloride 101, bicarbonate 30, BUN 14, creatinine 1.12, glucose 91. Microbiology: Two sets of blood cultures, no growth. Urine culture negative. Respiratory panel negative. Strep screen negative. IMAGING STUDIES: Chest CT 07/19/2019: Pulmonary bullae in the apices. Right chest tube. Right pneumothorax. Virtually completely evacuated small amount of pneumomediastinum. Bilateral upper lobe pulmonary parenchymal bullae or air cyst, right larger than left. Renal scan showed relatively normal kidney function. Greater degree of split function on the right compared to the left. Moderate postvoid residual on the urinary bladder. Hepatitis serology was negative, Staphylococcus aureus (MRSA) was negative. HIV was negative. Time spent on discharge 30 minutes.
--- NOTE | 2019-07-24 14:04 | IPN ---
DATE: 07/23/2019 HISTORY: The patient was admitted on 07/19/2019 with a very large right pneumothorax. This was spontaneous. A chest tube was placed. On the evening of 07/20/2019, his right-sided chest tube apparently became dislodged and Dr. Lopez inserted a small anterior tube at the apex. This apparently adequately reinflated the lung. His x-ray last evening showed the tube tip is now outside the chest wall and he had a small residual apical pneumothorax. Vital signs show that he has been afebrile. His pulse is in the 60s and sometimes as high as the low 90s. Blood pressure is good. Intake and output show that he has been eating and drinking well. His chest tube had no significant amount out. Physical exam this morning shows that he is alert and comfortable. His small caliber apical chest tube was apparently removed last evening. He denies any chest pain. He is breathing easily. Physical exam shows clear bilateral breath sounds. Heart exam shows a regular rhythm, and he is not tachycardiac. Laboratory studies show white count of 10, hemoglobin of 16, hematocrit of 45 and a platelet count of 249,000. Chemistry profile shows sodium 139, potassium 3.2, chloride 101, CO2 of 30, BUN of 14, creatinine 1.1 and a glucose of 91. Chest x-ray today shows a very small residual sliver of air around the apex. Lung is otherwise clear. IMPRESSION: The patient is feeling comfortable with no pain and his pneumothorax appears to have nearly completely resolved. His small caliber of chest tube was removed last evening. PLAN: I discussed with the patient that he is at significant risk for a pneumothorax on either the right or left side as he has a bleb noted on a CT scan in both apices. The patient does not wish to consider any surgery at this time. He does indicate that he is going to stop smoking, which has been primarily marijuana not cigarettes, and I encouraged him that the continued smoking will probably keep him at a higher risk of recurrence. I did advise him that if he has a recurrent pneumothorax on either side that he should definitely have surgery to remove the blebs and perform a pleuradesis. I advised him that if he notes pain in the chest, which he should recognize as a new pneumothorax, he should return immediately to the emergency department. The patient will be discharged today by Dr. Gross.
== END 2019-07-23 16:37 | disposition home or self-care (01) | DRG 143 ==
LOC: M ED 07:23 → M ED INP 09:44 → M PCU 12:06
PROVIDERS: ADMIT General Practice; ATTEND General Practice
PROC: 0W9930Z Drainage of Right Pleural Cavity with Drainage Device, Percutaneous Approach (ICD-10-PCS; principal; 2019-07-19)
PROC: 0W9930Z Drainage of Right Pleural Cavity with Drainage Device, Percutaneous Approach (ICD-10-PCS; 2019-07-20)
DX: J93.0 Spontaneous tension pneumothorax (principal); N17.9 Acute kidney failure, unspecified; A04.8 Other specified bacterial intestinal infections; E87.2 Acidosis; E87.1 Hypo-osmolality and hyponatremia; D75.1 Secondary polycythemia; E83.52 Hypercalcemia; E86.0 Dehydration; R11.15 Cyclical vomiting syndrome unrelated to migraine; F12.10 Cannabis abuse, uncomplicated; I16.0 Hypertensive urgency; J43.9 Emphysema, unspecified; R80.9 Proteinuria, unspecified

== ENCOUNTER → 2019-07-26 | Outpatient (REF) | payer OTHER ==
[~2019-07-26] MED LIST changes: +GNP650TA8 PO; +ZOFR8TAB24 PO
[2019-07-26 11:59] LABS: APPEARANCE, URINE HAZY (CLEAR); BACTERIA, URINE AUTO NEGATIVE (NEGATIVE); BILIRUBIN, URINE AUTO NEGATIVE (NEGATIVE); BLOOD, URINE BLOOD NEGATIVE (NEGATIVE); CALCIUM OXALATE CRYSTALS SMALL; COLOR, URINE AMBER (YELLOW); GLUCOSE, URINE (UA) AUTO NEGATIVE (NEGATIVE); KETONE, URINE AUTO TRACE mg/dL (NEGATIVE); LEUKOCYTE ESTERASE, URINE AUTO NEGATIVE (NEGATIVE); MUCUS, URINE LARGE (NEGATIVE); NITRITE, URINE AUTO NEGATIVE (NEGATIVE); PROTEIN, URINE AUTO 2+ mg/dL (NEGATIVE); RBC, URINE AUTO 2 /HPF (0-3); SPECIFIC GRAVITY URINE AUTO 1.032 (1.002-1.035); SQUAMOUS EPITHELIAL CELL UR AU 0 /HPF (0-6); WBC, URINE AUTO 6 /HPF (0-3)
[2019-07-26 18:10] LABS: BASO % 0.3 % (0.0-1.0); EOS % 0.1 % (0.0-3.0); HEMATOCRIT 47.8 % (42.0-52.0); HEMOGLOBIN 15.9 g/dl (13.5-17.5); LYMPH # 2.2 10^3/uL (1.5-5.0); LYMPH % 15.7 % (24.0-44.0); MEAN CORPUSCULAR HEMOGLOBIN 29.3 pg (27.0-33.0); MEAN CORPUSCULAR HGB CONC 33.3 g/dl (32.0-36.5); MEAN CORPUSCULAR VOLUME 88.2 fl (80.0-96.0); MONO # 0.9 10^3/uL (0.0-0.8); MONO % 6.8 % (0.0-5.0); NEUTROPHILS # 10.6 10^3/uL (1.5-8.5); NEUTROPHILS % 76.5 % (36.0-66.0); PLATELET COUNT, AUTOMATED 349 10^3/uL (150-450); RED BLOOD COUNT 5.42 10^6/uL (4.30-6.10); WHITE BLOOD COUNT 13.8 10^3/uL (4.0-10.0)
[2019-07-26 18:26] LABS: ALBUMIN 4.8 GM/DL (3.2-5.2); ALT/SGPT 29 U/L (12-78); BILIRUBIN,TOTAL 0.6 MG/DL (0.2-1.0); BLOOD UREA NITROGEN 15 MG/DL (7-18); CALCIUM LEVEL 9.9 MG/DL (8.5-10.1); CARBON DIOXIDE LEVEL 31 MEQ/L (21-32); CHLORIDE LEVEL 98 MEQ/L (98-107); CHOLESTEROL LEVEL 147 MG/DL (<200); CREATININE FOR GFR 1.36 MG/DL (0.70-1.30); FREE T4 1.35 NG/DL (0.76-1.46); GLOMERULAR FILTRATION RATE > 60.0 (>60); GLUCOSE, FASTING 90 MG/DL (70-100); HDL CHOLESTEROL 42 MG/DL (>40); LDL CHOLESTEROL 90 MG/DL (<100); NON-HDL-C 105 MG/DL; POTASSIUM SERUM 3.9 MEQ/L (3.5-5.1); SODIUM LEVEL 137 MEQ/L (136-145); TOTAL 25(OH) VITAMIN D 11.4 NG/ML (30.0-100.0); TOTAL PROTEIN 8.4 GM/DL (6.4-8.2); TRIGLYCERIDES LEVEL 76 MG/DL (<150)
[2019-07-26 18:29] LABS: HEMOGLOBIN A1c 5.3 %
== END ==
LOC: M LAB REF 11:44
PROVIDERS: ATTEND Nurse Practitioner Family
DX: Z13.9 Encounter for screening, unspecified (principal); N17.9 Acute kidney failure, unspecified; R03.0 Elevated blood-pressure reading, without diagnosis of hypertension; J93.11 Primary spontaneous pneumothorax

== ENCOUNTER → 2019-12-28 | Outpatient (REF) | payer OTHER ==
[2019-12-28 12:19] LABS: BASO # 0.1 10^3/uL (0.0-0.2); BASO % 0.7 % (0.0-1.0); EOS # 0.2 10^3/uL (0.0-0.5); HEMATOCRIT 50.4 % (42.0-52.0); HEMOGLOBIN 16.8 g/dl (13.5-17.5); LYMPH # 2.5 10^3/uL (1.5-5.0); LYMPH % 28.8 % (24.0-44.0); MEAN CORPUSCULAR HEMOGLOBIN 29.7 pg (27.0-33.0); MEAN CORPUSCULAR HGB CONC 33.3 g/dl (32.0-36.5); MONO # 0.7 10^3/uL (0.0-0.8); MONO % 8.7 % (0.0-5.0); NEUTROPHILS # 5.1 10^3/uL (1.5-8.5); NEUTROPHILS % 59.1 % (36.0-66.0); PLATELET COUNT, AUTOMATED 210 10^3/uL (150-450); RED BLOOD COUNT 5.66 10^6/uL (4.30-6.10); WHITE BLOOD COUNT 8.6 10^3/uL (4.0-10.0)
[2019-12-28 12:58] LABS: ALBUMIN 4.3 GM/DL (3.2-5.2); ALT/SGPT 26 U/L (12-78); BILIRUBIN,TOTAL 0.5 MG/DL (0.2-1.0); BLOOD UREA NITROGEN 12 MG/DL (7-18); CALCIUM LEVEL 9.3 MG/DL (8.5-10.1); CARBON DIOXIDE LEVEL 27 MEQ/L (21-32); CHLORIDE LEVEL 107 MEQ/L (98-107); GLOMERULAR FILTRATION RATE > 60.0 (>60); GLUCOSE, FASTING 87 MG/DL (70-100); POTASSIUM SERUM 3.9 MEQ/L (3.5-5.1); SODIUM LEVEL 140 MEQ/L (136-145); TOTAL 25(OH) VITAMIN D 17.4 NG/ML (30.0-100.0); TOTAL PROTEIN 7.6 GM/DL (6.4-8.2)
== END ==
LOC: M LAB REF 11:57
PROVIDERS: ATTEND Nurse Practitioner Family
DX: F12.10 Cannabis abuse, uncomplicated (principal); E55.9 Vitamin D deficiency, unspecified; R03.0 Elevated blood-pressure reading, without diagnosis of hypertension; Z13.9 Encounter for screening, unspecified

== ENCOUNTER → 2020-01-08 | Outpatient (REF) ==
--- NOTE | 2020-01-08 17:23 | REP ---
Clinical: Autopsy Technique: Portable AP and cross-table lateral views of the skull. Findings: Examination is limited by technique, and no obvious calvarial fracture is appreciated. Lateral view suggests facial bone fractures including nasal bone and orbital wall fractures. Impression: Facial bone fractures suggested. Electronically Signed by Mihir Perdomo MD 01/08/2020 05:15 P
--- NOTE | 2020-01-08 17:39 | REP ---
Clinical: autopsy. Technique: Portable AP and cross-table lateral views of the cervical spine. Findings: Examination is limited by technique. Injury to the lower cervical spine. Bilateral rib fractures noted. Subcutaneous emphysema and foreign body material cannot be excluded. Impression: Possible fracture / dislocation along the right side of the lower cervical spine. Further traumatic findings include bilateral rib fractures, and suspected elements of subcutaneous emphysema and small amounts of scattered foreign body material. Electronically Signed by Mihir Perdomo MD 01/08/2020 05:30 P
--- NOTE | 2020-01-08 17:43 | REP ---
Clinical: autopsy. Technique: Two portable supine views of the pelvis. Findings: Transverse fracture of the right femoral shaft is appreciated along with comminuted fractures of the left esteban pelvis. Fracture through the right iliac wing. Impression: Multiple fractures as noted above. Electronically Signed by Mihir Perdomo MD 01/08/2020 05:35 P
--- NOTE | 2020-01-08 17:48 | REP ---
Clinical: autopsy Technique: Portable supine view of the chest. Findings: Multiple bilateral rib fractures (right greater than left) along with pneumothorax and subcutaneous emphysema noted. Impression: Multiple bilateral rib fractures Electronically Signed by Mihir Perdomo MD 01/08/2020 05:39 P
--- NOTE | 2020-01-08 17:50 | REP ---
Clinical: autopsy Technique: Single portable supine view of the abdomen. Findings: Examination is limited by technique and positioning. Multiple bilateral rib fractures are identified along with a transverse fracture through the right iliac wing and comminuted fracture of the left acetabulum. Impression: Traumatic fractures as noted above. Electronically Signed by Mihir Perdomo MD 01/08/2020 05:41 P
== END ==
LOC: M LAB 09:48